=== PATIENT | male | born 1955 | race Caucasian/White ===

== ENCOUNTER 2017-06-02 07:50 | Day surgery (SDC) | payer MEDICARE, MEDICAID ==
[2017-06-02] MEDS: Lactated Ringers 1,000 ML IV SCH ×3 (09:38→22:45)
[2017-06-02] MEDS ORDERED: Ondansetron 4 MG/2 ML SDV IVPUSH ONE (10:10)
[2017-06-02] MEDS ORDERED: Propofol 200 MG/20 ML SDV IV ONE (10:10)
[2017-06-02] MEDS ORDERED: Succinylcholine 200 MG/10 ML MDV IV ONE (10:10)
[2017-06-02] MEDS ORDERED: fentaNYL 100 MCG/2 ML SDV IV ONE (10:10)
[2017-06-02] MEDS ORDERED: Morphine 10 MG/ML Syringe IVPUSH ONE (10:10)
[2017-06-02] MEDS ORDERED: Labetalol 100 MG/20 ML MDV IV ONE (10:10)
[2017-06-02] MEDS ORDERED: Neostigmine Methylsulfate 10 MG/10 ML MDV IVPUSH ONE (10:10)
[2017-06-02] MEDS ORDERED: Lactated Ringers 1,000 ML IV ONE (10:10)
[2017-06-02] MEDS ORDERED: Glycopyrrolate 0.2 MG/ML 5 ML MDV IV ONE (10:10)
[2017-06-02] MEDS ORDERED: Rocuronium 50 MG/5 ML Vial IV ONE (10:10)
[2017-06-02] MEDS ORDERED: Midazolam 1 MG/ML 2 ML SDV IV ONE (10:10)
[2017-06-02] MEDS ORDERED: Bupivacaine 0.5% 30 ML SDV INFILT ONE (10:32)
[2017-06-02] MEDS ORDERED: Lidocaine 1% with EPINEPHrine 1:100,000 20 ML MDV INFILT ONE (10:32)
[2017-06-02] MEDS ORDERED: Ondansetron 4 MG/2 ML SDV IVPUSH PRN (11:16)
[2017-06-02] MEDS ORDERED: HYDROmorphone 2 MG/ML SDV IVPUSH PRN (11:16)
--- NOTE | 2017-06-02 11:16 | PCM.OPNOTE ---
- General Post-Op/Procedure Note Date of Surgery/Procedure: 06/02/17 Operative Procedure(s): umbilical hernia repair with mesh Findings: umbilical hernia repaired with 11.4 cm mesh Pre Op Diagnosis: umbilical hernia Post-Op Diagnosis: Same Anesthesia Technique: General ET Tube, Local (8 ml 1% lido with epi/0.5 buvipicaine) Primary Surgeon: Kevin Narayanan Anesthesia Provider: Mirian Johnson Pathology: omentum and sac Complications: None Condition: Good Free Text/Narrative:: see dictation
[2017-06-02] MEDS: Morphine 2 MG/ML Syringe IVPUSH PRN ×3 (11:42→12:02)
--- NOTE | 2017-06-02 12:34 | OR ---
DATE OF OPERATION: 06/02/2017 SURGEON: Kevin Narayanan MD PROCEDURE PERFORMED: Umbilical hernia repair. PREOPERATIVE DIAGNOSIS: Umbilical hernia. POSTOPERATIVE DIAGNOSIS: Umbilical hernia. INDICATIONS FOR PROCEDURE: This is a 61-year-old white male, who was referred with a symptomatic umbilical hernia. It was reducible in the clinic but did cause him some discomfort. He was offered and accepted repair. INTRAOPERATIVE FINDINGS: A 4-cm defect was noted with the omentum in the hernia sac itself. This was repaired with a Ventrio hernia patch, reference #[id number], lot #[id number], lot [id number]. SPECIMEN: Hernia sac and omentum. DESCRIPTION OF PROCEDURE: After an excellent general anesthetic was administered, the patient was prepped and draped in usual sterile manner. A 9 mL of 1:1 mixture of 1% lidocaine with epinephrine 0.5% bupivacaine was used to perform our planned incision which was a vertical midline approximately 11 cm in length. A combination of sharp and blunt dissection was used to open up the hernia sac on the medial aspect on the left side. This allowed us to grasp the hernia sac to open it and complete our dissection on the right side allowing us to dissect the hernia sac free from the anterior abdominal wall. The patient was noted to have incarcerated omentum. Efforts to reduce were not successful. LigaSure was used transect at 3 several points, and the specimen was passed off the field. The hernia sac was also dissected free from the umbilicus and was passed off the field as well. The incision was opened by about a centimeter superiorly and inferiorly to allow insertion of our Ventrio hernia patch which was then placed. It was tacked to the anterior abdominal wall using the Stat Tacker, and then, the defect was closed with a running 1-0 Prolene incorporating the inner layer of the mesh. The subcu fat was approximated using 0 Vicryl, and then, the skin was used to close the shailesh. Needle, sponge, and instrument counts were reported as correct. The patient was taken to recovery room in good condition. /[id number] /MODL
[2017-06-02] MEDS ORDERED: Furosemide 80 MG Tab *PTOM PO SCH (14:00)
[2017-06-02] MEDS ORDERED: QUINAPRIL HCL 20 MG PO SCH (16:00)
[2017-06-02] MEDS: Allopurinol 100 MG Tab PO SCH (16:34)
[2017-06-02] MEDS: Allopurinol 100 MG Tab *PTOM PO SCH ×2 (16:34→16:40)
[2017-06-02] MEDS ORDERED: amLODIPine 5 MG Tab *PTOM PO SCH (21:00)
[2017-06-02] MEDS: LABETALOL 200 MG PO SCH (21:09)
[2017-06-03] MEDS: Acetaminophen/HYDROcodone 325-10 MG Tab PO PRN ×2 (00:49→09:13)
--- NOTE | 2017-06-03 08:38 | PCM.SURGPN ---
- General Info Date of Service: 06/03/17 POD#: 1 Functional Status: Reports: Pain Controlled, Tolerating Diet, Ambulating, Urinating - Review of Systems Pulmonary: Reports: No Symptoms Cardiovascular: Reports: No Symptoms Gastrointestinal: Reports: Abdominal Pain - Patient Data Vitals - Most Recent: Last Vital Signs Temp 36.4 C 06/03/17 02:50 Pulse 65 06/03/17 02:50 Resp 18 06/03/17 02:50 BP 126/68 06/03/17 02:50 Pulse Ox 95 06/03/17 02:50 Weight - Most Recent: 139.7 kg I&O - Last 24 Hours: Intake & Output 06/02/17 06/03/17 06/03/17 22:59 06:59 14:59 Intake Total 846 Output Total 1100 Balance -254 Med Orders - Current: Current Medications Hydrocodone Bitart/Acetaminophen (Lambert 325-10 Mg) 2 tab PO Q4H PRN PRN Reason: Pain (severe 7-10) Last Admin: 06/03/17 00:49 Dose: 2 tab Allopurinol (Zyloprim) 100 mg PO BID@0900,1600 [facility] Last Admin: 06/02/17 16:34 Dose: 100 mg Amlodipine Besylate (Norvasc) 5 mg PO BEDTIME [facility] Last Admin: 06/02/17 21:10 Dose: 5 mg Furosemide (Lasix) 40 mg PO DAILY [facility] Hydromorphone HCl (Dilaudid) 2 mg IVPUSH Q1H PRN PRN Reason: Pain (severe 7-10) Last Admin: 06/02/17 13:12 Dose: 2 mg Lactated Ringer's (Ringers, Lactated) 1,000 mls @ 125 mls/hr IV ASDIRECTED [facility] Last Admin: 06/02/17 22:45 Dose: 125 mls/hr Labetalol HCl (Normodyne) 200 mg PO BID@0630,2100 [facility] Last Admin: 06/02/17 21:09 Dose: 200 mg Morphine Sulfate (Morphine) 2 mg IVPUSH Q5M PRN PRN Reason: Pain Last Admin: 06/02/17 12:02 Dose: 2 mg Quinapril Hcl [ Accupril] 20 Mg Tab *Ptom 20 mg PO DAILY@1600 [facility] Last Admin: 06/02/17 16:34 Dose: 20 mg Ondansetron HCl (Zofran) 4 mg IVPUSH Q6H PRN PRN Reason: Nausea/Vomiting Discontinued Medications Allopurinol (Zyloprim) 200 mg PO DAILY [facility] Allopurinol (Zyloprim) 200 mg PO DAILY@0900,1600 [facility] Last Admin: 06/02/17 16:40 Dose: Not Given Bupivacaine HCl (Marcaine 0.5%) 10 ml INFILT .STK-MED ONE Stop: 06/02/17 10:33 Last Admin: 06/02/17 10:32 Dose: 10 ml Furosemide (Lasix) 80 mg PO BIDDIURETIC [facility] Last Admin: 06/02/17 13:51 Dose: Not Given Cefazolin Sodium 3 gm/ Sodium (Chloride) 100 mls @ 200 mls/hr IV ONETIME ONE Stop: 06/02/17 09:29 Last Admin: 06/02/17 09:48 Dose: 200 mls/hr Lidocaine/Epinephrine (Xylocaine 1% With Epinephrine 1:100,000) 10 ml INFILT .STK-MED ONE Stop: 06/02/17 10:33 Last Admin: 06/02/17 10:32 Dose: 10 ml - Exam Wound/Incisions: Dressing Dry and Intact General: Alert, Oriented, Cooperative, No Acute Distress Lungs: Clear to Auscultation, Normal Respiratory Effort Cardiovascular: Regular Rate, Regular Rhythm GI/Abdominal Exam: Normal Bowel Sounds, No Distention - Problem List & Annotations (1) Incisional hernia SNOMED Code(s): 995280273 Code(s): K43.2 - INCISIONAL HERNIA WITHOUT OBSTRUCTION OR GANGRENE Status: Acute Current Visit: Yes Qualifiers: Obstruction and gangrene presence: without obstruction or gangrene Qualified Code(s): K43.2 - Incisional hernia without obstruction or gangrene - Problem List Review Problem List Initiated/Reviewed/Updated: Yes - My Orders Last 24 Hours: Active Orders 24 hr Category Date Time Status Patient Status [ADT] Routine ADT 06/02/17 09:00 Ordered Oxygen Therapy [RC] PRN Care 06/02/17 11:16 Active RT Incentive Spirometry [RC] Q2HWA Care 06/02/17 11:16 Active Ready for Discharge [RC] PER UNIT ROUTINE Care 06/03/17 08:37 Ordered Up With Assistance [RC] Q4HWA Care 06/02/17 11:16 Active Verify Patient Consent Obtain [RC] ASDIRECTED Care 06/02/17 09:00 Active Vital Signs [RC] 1600,2000,0000,0400,0800,1200 Care 06/02/17 11:16 Active Clear Liquid Diet [DIET] Diet 06/02/17 Dinner Ordered Acetaminophen/HYDROcodone [Lambert 325-10 MG] Med 06/02/17 11:16 Active 2 tab PO Q4H PRN Allopurinol [Zyloprim] Med 06/02/17 16:00 Active 100 mg PO BID@0900,1600 Furosemide [Lasix] Med 06/03/17 09:00 Active 40 mg PO DAILY HYDROmorphone [Dilaudid] Med 06/02/17 11:16 Active 2 mg IVPUSH Q1H PRN Labetalol [Normodyne] Med 06/02/17 21:00 Active 200 mg PO BID@0630,2100 Lactated Ringers [Ringers, Lactated] 1,000 ml Med 06/02/17 09:00 Active IV ASDIRECTED Morphine Med 06/02/17 11:26 Active 2 mg IVPUSH Q5M PRN Ondansetron [Zofran] Med 06/02/17 11:16 Active 4 mg IVPUSH Q6H PRN Quinapril HCl [Accupril] Med 06/02/17 16:00 Active 20 mg PO DAILY@1600 amLODIPine [Norvasc] Med 06/02/17 21:00 Active 5 mg PO BEDTIME Peripheral IV Insertion Adult [OM.PC] Routine Oth 06/02/17 09:00 Ordered Sequential Compression Device [OM.PC] Routine Oth 06/02/17 09:00 Ordered Medication Orders Hydrocodone Bitart/Acetaminophen (Lambert 325-10 Mg) 2 tab PO Q4H PRN PRN Reason: Pain (severe 7-10) Last Admin: 06/03/17 00:49 Dose: 2 tab Allopurinol (Zyloprim) 100 mg PO BID@0900,1600 [facility] Last Admin: 06/02/17 16:34 Dose: 100 mg Amlodipine Besylate (Norvasc) 5 mg PO BEDTIME [facility] Last Admin: 06/02/17 21:10 Dose: 5 mg Furosemide (Lasix) 40 mg PO DAILY [facility] Hydromorphone HCl (Dilaudid) 2 mg IVPUSH Q1H PRN PRN Reason: Pain (severe 7-10) Last Admin: 06/02/17 13:12 Dose: 2 mg Lactated Ringer's (Ringers, Lactated) 1,000 mls @ 125 mls/hr IV ASDIRECTED [facility] Last Admin: 06/02/17 22:45 Dose: 125 mls/hr Infusion: 06/02/17 22:38 Dose: 125 mls/hr Admin: 06/02/17 14:38 Dose: 125 mls/hr Infusion: 06/02/17 14:38 Dose: 125 mls/hr Admin: 06/02/17 09:38 Dose: 125 mls/hr Labetalol HCl (Normodyne) 200 mg PO BID@0630,2100 [facility] Last Admin: 06/02/17 21:09 Dose: 200 mg Morphine Sulfate (Morphine) 2 mg IVPUSH Q5M PRN PRN Reason: Pain Last Admin: 06/02/17 12:02 Dose: 2 mg Admin: 06/02/17 11:51 Dose: 2 mg Admin: 06/02/17 11:42 Dose: 2 mg Quinapril Hcl [ Accupril] 20 Mg Tab *Ptom 20 mg PO DAILY@1600 [facility] Last Admin: 06/02/17 16:34 Dose: 20 mg Ondansetron HCl (Zofran) 4 mg IVPUSH Q6H PRN PRN Reason: Nausea/Vomiting - Assessment Assessment (Free Text/Narrative):: ready for discharge
[2017-06-03] MEDS ORDERED: Allopurinol 100 MG Tab *PTOM PO SCH (09:00)
[2017-06-03] MEDS ORDERED: Furosemide 80 MG Tab PO SCH (09:00)
[2017-06-03] MEDS: LABETALOL 200 MG PO SCH (09:11)
[2017-06-03] MEDS: Allopurinol 100 MG Tab PO SCH (09:12)
[2017-06-03 15:32] VITALS: BP 135/85
== END 2017-06-03 13:00 | disposition home or self-care (01) ==
LOC: FB.SDS 07:50 → FB.MS 12:32 → FB.SDS 06-03 13:00
PROVIDERS: ATTEND Surgery
DX: K42.0 Umbilical hernia with obstruction, without gangrene (principal); I10 Essential (primary) hypertension; E78.5 Hyperlipidemia, unspecified; E66.9 Obesity, unspecified; Z88.8 Allergy status to other drugs, medicaments and biological substances; Z79.82 Long term (current) use of aspirin; Z79.899 Other long term (current) drug therapy; Z87.891 Personal history of nicotine dependence
CPT/HCPCS: 00832; 49587; 88302; 88305; 94150; A4217; A9270; C1781; J0131; J0330; J0690; J1170; J2250; J2270; J2405; J2704; J2710; J3010; J7030; J7120

== ENCOUNTER 2019-10-16 07:11 | Day surgery (SDC) | payer MEDICAID, MEDICARE ==
[2019-10-16] MEDS ORDERED: Propofol 200 MG/20 ML SDV IV ONE (07:12)
[2019-10-16] MEDS ORDERED: Sodium Chloride 0.9% 10 ML Syringe FLUSH PRN (07:15)
[2019-10-16] MEDS ORDERED: Lactated Ringers 1,000 ML IV SCH (07:15)
[2019-10-16] MEDS ORDERED: Simethicone Drops 40 MG/0.6 ML 30 ML Bottle ONE (09:02)
--- NOTE | 2019-10-16 09:13 | PCM.OPNOTE ---
- General Post-Op/Procedure Note Date of Surgery/Procedure: 10/16/19 Operative Procedure(s): c scope Findings: sigmoid diverticulosis internal hemorrhoids Pre Op Diagnosis: anemia. hx of bleeding Post-Op Diagnosis: sigmoid diverticulosis. internal hemorrhoids Anesthesia Technique: VIC Primary Surgeon: Kevin Narayanan Anesthesia Provider: Mirian Johnson Pathology: none Complications: None Condition: Good Free Text/Narrative:: see dictation
[2019-10-16 10:21] VITALS: BP 175/69; PULSE 71
--- NOTE | 2019-10-16 11:06 | OR ---
DATE OF OPERATION: 10/16/2019 SURGEON: Kevin Narayanan MD PROCEDURE PERFORMED: Colonoscopy. PREOPERATIVE DIAGNOSES: History of anemia, bleeding per rectum. POSTOPERATIVE DIAGNOSES: Sigmoid diverticulosis and internal hemorrhoids. INDICATIONS FOR PROCEDURE: This is a 64-year-old white male, referred with the above-mentioned complaints. He was offered and accepted colonoscopy. DESCRIPTION OF OPERATION: After an excellent IV sedation was administered, digital rectal exam was performed. No marked abnormality was noted. Flexible colonoscope was inserted and advanced to the cecum. Prep was excellent. The following findings were noted. Ascending colon, unremarkable. Transverse colon, unremarkable. Descending colon, unremarkable. Sigmoid, scattered diverticula. Rectum, unremarkable. Anus demonstrates some hemorrhoidal tissue, which appears to be the apparent cause of his bleeding. These appeared to be stage II and they appear to be amenable to banding. The patient tolerated the procedure well and was taken to recovery room. RECOMMENDATIONS: Repeat colonoscopy in 10 years and he will be following up with me tomorrow for a problem that is not related to his GI tract. /[id number] /MODL
== END 2019-10-16 10:32 | disposition home or self-care (01) ==
LOC: FB.SDS 07:11
PROVIDERS: ATTEND Surgery
DX: K62.5 Hemorrhage of anus and rectum (principal); K57.31 Diverticulosis of large intestine without perforation or abscess with bleeding; K64.8 Other hemorrhoids; I10 Essential (primary) hypertension; E78.49 Other hyperlipidemia; M10.9 Gout, unspecified; M17.10 Unilateral primary osteoarthritis, unspecified knee; E66.9 Obesity, unspecified; Z86.2 Personal history of diseases of the blood and blood-forming organs and certain disorders involving the immune mechanism; Z79.899 Other long term (current) drug therapy; Z79.82 Long term (current) use of aspirin; Z88.8 Allergy status to other drugs, medicaments and biological substances; Z68.43 Body mass index [BMI] 50.0-59.9, adult
CPT/HCPCS: 45378; A9270; J2704; J7120

== ENCOUNTER 2021-10-11 12:27 | Emergency (ER) | payer MEDICARE ==
[2021-10-11] MEDS ORDERED: Sodium Chloride 0.9% 10 ML Syringe FLUSH PRN (12:47)
[2021-10-11] MEDS ORDERED: Ketorolac 30 MG/ML SDV IVPUSH ONE (13:00)
[2021-10-11] MEDS ORDERED: HYDROmorphone 2 MG/ML SDV IVPUSH STA (13:00)
--- NOTE | 2021-10-11 14:56 | EDM.PDOC ---
ED HPI GENERAL MEDICAL PROBLEM - General Chief Complaint: Cardiovascular Problem Stated Complaint: FALL/PAIN Time Seen by Provider: 10/11/21 12:35 Source of Information: Reports: Patient, EMS History Limitations: Reports: No Limitations - History of Present Illness INITIAL COMMENTS - FREE TEXT/NARRATIVE: Patient is a 66 YO WM who presented to the ED because of low back pain and coccygeal pain. He tripped and fell last night and landed on his buttock and lower back. Denies hitting his head. There was no LOC after the fall but he can't get up. He doesn't have any other complains except for the severe low back pain and upon triage he was bradycardic 27-58. There is no recent fever, chills, cough or cold symptoms. There is no N/V/ but had several watery stools yesterday. Lower Back Pain Score (Numeric/FACES): 10 - Related Data Allergies Allergy/AdvReac Type Severity Reaction Status Date / Time ketoprofen AdvReac Nausea Verified 10/11/21 18:52 Home Meds: Home Meds Aspirin [Cheryl Chewable Aspirin] 81 mg PO DAILY 06/19/13 [History] Labetalol HCl [Labetalol] 200 mg PO 0630,2100 06/19/13 [History] Quinapril HCl [Accupril] 40 mg PO DAILY@1600 06/19/13 [History] amLODIPine Besylate [Norvasc] 10 mg PO DAILY 06/19/13 [History] atorvaSTATin [Lipitor] 10 mg PO DAILY 06/19/13 [History] Potassium Chloride 10 meq PO DAILY 03/19/15 [History] Allopurinol [Zyloprim] 200 mg PO DAILY 06/01/17 [History] Cholecalciferol (Vitamin D3) [Vitamin D3] 2,000 unit PO DAILY 06/01/17 [History] Furosemide [Lasix] 40 mg PO DAILY 06/01/17 [History] Cyanocobalamin (Vitamin B-12) [B-12] 500 mcg PO DAILY 10/12/19 [History] hydroCHLOROthiazide [Hydrochlorothiazide] 50 mg PO DAILY 10/12/19 [History] Past Medical History HEENT History: Reports: None Cardiovascular History: Reports: High Cholesterol, Hypertension Respiratory History: Reports: None Gastrointestinal History: Reports: None Genitourinary History: Reports: None Musculoskeletal History: Reports: Arthritis, Gout Other Musculoskeletal History: KNEE PAIN Neurological History: Reports: None Psychiatric History: Reports: None Endocrine/Metabolic History: Reports: Obesity/BMI 30+ Hematologic History: Reports: Anticoagulation Therapy Immunologic History: Reports: None Oncologic (Cancer) History: Reports: None Dermatologic History: Reports: Other (See Below) Other Dermatologic History: CHRONIC RASH ON ABDOMEN - Infectious Disease History Infectious Disease History: Reports: Chicken Pox - Past Surgical History Head Surgeries/Procedures: Reports: None HEENT Surgical History: Reports: None Cardiovascular Surgical History: Reports: None Respiratory Surgical History: Reports: None GI Surgical History: Reports: Hernia, Abdominal Endocrine Surgical History: Reports: None Neurological Surgical History: Reports: None Musculoskeletal Surgical History: Reports: Carpal Tunnel Other Musculoskeletal Surgeries/Procedures:: R carpal tunnel surg Oncologic Surgical History: Reports: None Dermatological Surgical History: Reports: None Social & Family History - Family History Family Medical History: No Pertinent Family History - Caffeine Use Caffeine Use: Reports: Coffee ED ROS GENERAL - Review of Systems Review Of Systems: See Below Constitutional: Reports: No Symptoms HEENT: Reports: No Symptoms Respiratory: Reports: No Symptoms Cardiovascular: Reports: No Symptoms Endocrine: Reports: No Symptoms GI/Abdominal: Reports: No Symptoms : Reports: No Symptoms Musculoskeletal: Reports: No Symptoms Skin: Reports: No Symptoms Neurological: Reports: Weakness Psychiatric: Reports: No Symptoms ED EXAM, GENERAL - Physical Exam Exam: See Below Exam Limited By: No Limitations General Appearance: Alert, No Apparent Distress Ears: Normal External Exam, Normal Canal Nose: Normal Inspection, Normal Mucosa, No Blood Throat/Mouth: Normal Inspection, Normal Lips, Normal Teeth, Normal Gums, Normal Oropharynx, Normal Voice Head: Atraumatic, Normocephalic Neck: Normal Inspection, Supple, Non-Tender, Full Range of Motion Respiratory/Chest: No Respiratory Distress, Lungs Clear, Normal Breath Sounds, No Accessory Muscle Use, Chest Non-Tender Cardiovascular: Normal Peripheral Pulses, Bradycardia, Irregularly Irregular GI/Abdominal: Normal Bowel Sounds, Soft, Non-Tender, No Organomegaly, No Distention, No Abnormal Bruit Back Exam: Normal Inspection, Muscle Spasm, Paraspinal Tenderness, Vertebral Tenderness Extremities: Normal Inspection, Normal Range of Motion, Non-Tender, No Pedal Edema, Normal Capillary Refill Neurological: Alert, Oriented, CN II-XII Intact, Normal Cognition, Normal Reflexes, No Motor/Sensory Deficits Psychiatric: Normal Affect, Normal Mood Skin Exam: Warm Lymphatic: No Adenopathy #1 Interpretation EKG Date: 10/11/21 Time: 12:31 Rhythm: A-Fib Rate (Beats/Min): 51 [place]: Normal P-Wave: Present QRS: Normal ST-T: Normal QT: Normal Comparison: No Change EKG Interpretation Comments: AFIB Course - Vital Signs Text/Narrative:: Lab result was reviewed and discussed with patient NS 500 ml bolus Dilaudid 1 mg IV x1 Case was discussed with Dr Hilliard Recorded V/S: Last Vital Signs Temp 35.8 C L 10/11/21 12:30 Pulse 44 L 10/11/21 12:30 Resp 19 10/11/21 12:30 BP 127/107 H 10/11/21 12:30 Pulse Ox 90 L 10/11/21 12:30 - Orders/Labs/Meds Orders: Active Orders 24 hr Category Date Time Status Javier Catheter Insertion [Insert Urinary Catheter] [OM. Care 10/11/21 15:30 Ordered PC] Q24H Chest 1V Frontal [CR] Stat Exams 10/11/21 12:47 Taken Head wo Cont [CT] Stat Exams 10/11/21 15:17 Taken Lumbar Spine wo Cont [CT] Stat Exams 10/11/21 13:02 Taken Saline Lock Insert [OM.PC] Routine Oth 10/11/21 12:47 Ordered EKG 12 Lead [EK] Routine Ther 10/11/21 12:47 Ordered EKG 12 Lead [EK] Routine Ther 10/11/21 14:12 Ordered Labs: Laboratory Tests 10/11/21 10/11/21 10/11/21 Range/Units 13:22 13:22 13:22 WBC 6.5 (3.2-10.1) x10-3/uL RBC 3.04 L (3.90-5.90) x10(6)uL Hgb 10.0 L (12.9-17.7) g/dL Hct 32.1 L (38.3-50.1) % MCV 105.6 H (80.8-98.7) fL MCH 32.8 (27.0-33.3) pg MCHC 31.1 (28.7-35.3) g/dL RDW 16.1 H (12.4-15.0) % Plt Count 192 (117-477) x10(3)uL MPV 7.0 (6.7-11.0) fL Neut % (Auto) 68.9 (40.3-71.8) % Lymph % (Auto) 17.3 (15.8-45.3) % Jerome % (Auto) 8.8 (5.5-15.2) % Eos % (Auto) 4.2 (0.1-6.8) % Baso % (Auto) 0.8 (0.3-3.8) % Neut # (Auto) 4.5 (1.7-6.9) x10-3/uL Lymph # (Auto) 1.1 (0.5-4.5) x10-3/uL Jerome # (Auto) 0.6 (0.0-1.2) x10-3/uL Eos # (Auto) 0.3 (0.0-0.6) x10-3/uL Baso # (Auto) 0.0 (0.0-0.3) x10-3/uL Sodium 140 (135-145) mmol/L Potassium 4.9 D (3.5-5.3) mmol/L Chloride 105 (100-110) mmol/L Carbon Dioxide 23 (21-32) mmol/L BUN 96 H D (7-18) mg/dL Creatinine 5.0 H* (0.70-1.30) mg/dL Est Cr Clr Drug Dosing TNP Estimated GFR (MDRD) 12 L (>60) BUN/Creatinine Ratio 19.2 (9-20) Glucose 110 (80-116) mg/dL Lactic Acid (0.4-2.0) mmol/L Calcium 9.0 (8.6-10.2) mg/dL Total Bilirubin 0.3 (0.1-1.3) mg/dL AST 32 H D (5-25) IU/L ALT 25 D (12-36) U/L Alkaline Phosphatase 47 L (56-112) IU/L Creatine Kinase (60-160) IU/L Troponin I 17.8 (4.0-60.3) pg/mL NT-Pro-B Natriuret Pep 2147 H* (<=125) pg/mL Total Protein 7.5 (6.0-8.0) g/dL Albumin 3.4 (3.2-4.6) g/dL Globulin 4.1 g/dL Albumin/Globulin Ratio 0.8 SARS-CoV-2 RNA (YANCY) (NEGATIVE) 10/11/21 10/11/21 10/11/21 Range/Units 13:22 13:22 14:06 WBC (3.2-10.1) x10-3/uL RBC (3.90-5.90) x10(6)uL Hgb (12.9-17.7) g/dL Hct (38.3-50.1) % MCV (80.8-98.7) fL MCH (27.0-33.3) pg MCHC (28.7-35.3) g/dL RDW (12.4-15.0) % Plt Count (117-477) x10(3)uL MPV (6.7-11.0) fL Neut % (Auto) (40.3-71.8) % Lymph % (Auto) (15.8-45.3) % Jerome % (Auto) (5.5-15.2) % Eos % (Auto) (0.1-6.8) % Baso % (Auto) (0.3-3.8) % Neut # (Auto) (1.7-6.9) x10-3/uL Lymph # (Auto) (0.5-4.5) x10-3/uL Jerome # (Auto) (0.0-1.2) x10-3/uL Eos # (Auto) (0.0-0.6) x10-3/uL Baso # (Auto) (0.0-0.3) x10-3/uL Sodium (135-145) mmol/L Potassium (3.5-5.3) mmol/L Chloride (100-110) mmol/L Carbon Dioxide (21-32) mmol/L BUN (7-18) mg/dL Creatinine (0.70-1.30) mg/dL Est Cr Clr Drug Dosing Estimated GFR (MDRD) (>60) BUN/Creatinine Ratio (9-20) Glucose (80-116) mg/dL Lactic Acid 3.3 H* (0.4-2.0) mmol/L Calcium (8.6-10.2) mg/dL Total Bilirubin (0.1-1.3) mg/dL AST (5-25) IU/L ALT (12-36) U/L Alkaline Phosphatase (56-112) IU/L Creatine Kinase 202 H (60-160) IU/L Troponin I (4.0-60.3) pg/mL NT-Pro-B Natriuret Pep (<=125) pg/mL Total Protein (6.0-8.0) g/dL Albumin (3.2-4.6) g/dL Globulin g/dL Albumin/Globulin Ratio SARS-CoV-2 RNA (YANCY) Negative (NEGATIVE) Meds: Medications Discontinued Medications Generic Name Dose Route Start Last Admin Trade Name Becky PRN Reason Stop Dose Admin Atropine Sulfate 1 mg 10/11/21 17:08 10/11/21 17:15 Atropine 0.1 Mg/Ml 10 Ml Syringe IVPUSH 10/11/21 17:09 1 mg NOW STA Administration Cyclobenzaprine HCl 10 mg 10/11/21 15:43 10/11/21 16:01 Cyclobenzaprine 10 Mg Tab PO 10/11/21 15:44 10 mg NOW STA Administration Glucagon 1 mg 10/11/21 17:40 10/11/21 17:44 Glucagon,Human Recombinant 1 Mg Vial IVPUSH 10/11/21 17:41 1 mg NOW STA Administration Hydromorphone HCl 1 mg 10/11/21 13:00 10/11/21 13:10 Hydromorphone 2 Mg/Ml Sdv IVPUSH 10/11/21 13:01 1 mg NOW STA Administration Sodium Chloride 1,000 mls @ 100 mls/hr 10/11/21 15:45 10/11/21 15:46 Normal Saline IV 100 mls/hr ASDIRECTED [facility] Administration Norepinephrine Bitartrate 4 mg 250 mls @ 18.75 mls/hr 10/11/21 16:45 10/11/21 17:39 / Dextrose/Water IV 10 mcg/min TITRATE ASHOK 37.5 mls/hr Titration Protocol 5 MCG/MIN Ketorolac Tromethamine 30 mg 10/11/21 13:00 10/11/21 13:10 Ketorolac 30 Mg/Ml Sdv IVPUSH 10/11/21 13:01 30 mg ONETIME ONE Administration Sodium Chloride 10 ml 10/11/21 12:47 Sodium Chloride 0.9% 10 Ml Syringe FLUSH ASDIRECTED PRN Keep Vein Open Departure - Departure Time of Disposition: 15:00 Disposition: DC/Tfer to Acute Hospital 02 Reason for Transfer *Q: Other Condition: Good Clinical Impression: New onset a-fib, Bradycardia, Hypotension, Dehydration, CORRINE (acute kidney injury), Low back pain, Fall Referrals: PCP,None [Ordering Only Provider] - Forms: ED Department Discharge - My Orders Last 24 Hours: My Active Orders 10/11/21 12:47 Chest 1V Frontal [CR] Stat Saline Lock Insert [OM.PC] Routine EKG 12 Lead [EK] Routine 10/11/21 13:02 Lumbar Spine wo Cont [CT] Stat 10/11/21 14:12 EKG 12 Lead [EK] Routine 10/11/21 15:17 Head wo Cont [CT] Stat 10/11/21 15:30 Javier Catheter Insertion [Insert Urinary Catheter] [OM.PC] Q24H - Assessment/Plan Last 24 Hours: My Active Orders 10/11/21 12:47 Chest 1V Frontal [CR] Stat Saline Lock Insert [OM.PC] Routine EKG 12 Lead [EK] Routine 10/11/21 13:02 Lumbar Spine wo Cont [CT] Stat 10/11/21 14:12 EKG 12 Lead [EK] Routine 10/11/21 15:17 Head wo Cont [CT] Stat 10/11/21 15:30 Javier Catheter Insertion [Insert Urinary Catheter] [OM.PC] Q24H
[2021-10-11] MEDS ORDERED: Cyclobenzaprine 10 MG Tab PO STA (15:43)
[2021-10-11] MEDS ORDERED: Sodium Chloride 0.9% 1,000 ML IV SCH (15:45)
[2021-10-11] MEDS ORDERED: Norepinephrine 4 MG in Dextrose 5% in Water 246 ML IV SCH ×2 (16:45)
[2021-10-11] MEDS ORDERED: Atropine 0.1 MG/ML 10 ML Syringe IVPUSH STA (17:08)
[2021-10-11] MEDS ORDERED: Glucagon,Human Recombinant 1 MG Vial IVPUSH STA (17:40)
[2021-10-11 18:57] VITALS: BP 127/107; PULSE 44
--- NOTE | 2021-10-16 00:50 | PCM.EKG ---
#1 Interpretation EKG Date: 10/11/21 Time: 14:13 Rhythm: Other (Sinus Donnie) Rate (Beats/Min): 34 [place]: Normal P-Wave: Present QRS: Normal ST-T: Normal QT: Normal MI/PQ Interval: 205 Comparison: Change From Previous EKG EKG Interpretation Comments: Sinus bradycardia PAC's
--- NOTE | 2021-10-16 00:52 | PCM.EKG ---
#1 Interpretation EKG Date: 10/11/21 Time: 15:16 Rhythm: Other (Sinus Donnie) Rate (Beats/Min): 34 [place]: Normal P-Wave: Present QRS: Normal ST-T: Normal QT: Normal TN/PQ Interval: 205 Comparison: No Change EKG Interpretation Comments: Sinus Bradycardia PAC's
--- NOTE | 2021-10-16 00:54 | PCM.EKG ---
#1 Interpretation EKG Date: 10/11/21 Time: 15:19 Rhythm: A-Fib Rate (Beats/Min): 51 [place]: Normal P-Wave: Absent QRS: Normal ST-T: Normal QT: Prolonged Comparison: Change From Previous EKG EKG Interpretation Comments: AFIB PVC's
== END 2021-10-11 18:00 ==
LOC: FB.ED 12:27
DX: N17.9 Acute kidney failure, unspecified (principal); M54.50 Low back pain, unspecified; I95.9 Hypotension, unspecified; E86.0 Dehydration; I48.91 Unspecified atrial fibrillation; R00.1 Bradycardia, unspecified; E78.00 Pure hypercholesterolemia, unspecified; I10 Essential (primary) hypertension; E66.9 Obesity, unspecified; Z68.30 Body mass index [BMI] 30.0-30.9, adult; Z88.8 Allergy status to other drugs, medicaments and biological substances; Z79.82 Long term (current) use of aspirin; Z79.899 Other long term (current) drug therapy; Z20.822 Contact with and (suspected) exposure to COVID-19
CPT/HCPCS: 36415; 51702; 70450; 71045; 72131; 80053; 82550; 83605; 83880; 84484; 85025; 93005; 96365; 96375; 99285; A9270; J0461; J1170; J1610; J1885; J7030; J7060; U0002; 93010